=== PATIENT | female | born 1975 | race Caucasian/White ===

== ENCOUNTER → 2016-02-27 | Outpatient (CLI) | payer OTHER ==
--- NOTE | 2016-02-27 11:53 | DX ---
Lumbar Spine, AP and Lateral Upright Views, at 10:38 a.m. Clinical History: 40-year-old female with low back pain after slipping on ice today. ICD-10 Diagnostic Code: S20.229A. Comparison Study: Dictated report of pelvic sonography, dated April 25, 2005 from [facility], which identified large uterine fibroids. Findings: There are hypoplastic T12 ribs and 5 nonrib-bearing lumbar-type vertebral bodies. There is a mild lumbar levoscoliosis, measuring 8 degrees. The vertebral body heights and posterior alignments are maintained. There is mild straightening of the normal lumbar lordosis, which may reflect some un derlying muscle spasm. Interpediculate distances are appropriate. There is a T-shaped intrauterine de vice projected over the upper central pelvis. The sacral arcuate lines are well-contoured, and the SI joints are normal. There is some curvilinear calcification seen laterally over the left mid-lower sa keven on the frontal view, which could be related to a calcified leiomyoma. This could be further eval uated with pelvic sonography, as clinically directed. Impression: 1. Straightening of the normal lumbar lordosis and mild lumbar levoscoliosis, which may reflect some underlying muscle spasm. 2. There is no acute fracture. 3. Curvilinear calcification seen above an intrauterine device, probably related to calcified leiomyo rodriguez which have been described in the past; if there is further clinical concern, sonographic reevalu ation may be of benefit.
== END ==
LOC: BMCIMAGING 10:41
PROVIDERS: ATTEND Emergency Medicine
DX: M54.5 Low back pain (principal)

== ENCOUNTER → 2017-01-21 | Outpatient (CLI) | payer OTHER | LOC: FIMAGING 08:52 | PROVIDERS: ATTEND Midwife | DX: Z12.31 Encounter for screening mammogram for malignant neoplasm of breast (principal) | CPT/HCPCS: G0202 ==

== ENCOUNTER → 2017-10-13 | Outpatient (CLI) | payer OTHER | LOC: BMCIMAGING 15:44 | PROVIDERS: ATTEND Allergy & Immunology Allergy | DX: J98.4 Other disorders of lung (principal) ==

== ENCOUNTER → 2017-10-31 | Outpatient (CLI) | payer OTHER | LOC: FIMAGING 12:22 | PROVIDERS: ATTEND Allergy & Immunology Allergy | DX: J84.10 Pulmonary fibrosis, unspecified (principal) ==

== ENCOUNTER → 2018-02-10 | Outpatient (CLI) | payer OTHER | END | disposition home or self-care (01) | LOC: FIMAGING 11:39 | DX: Z12.31 Encounter for screening mammogram for malignant neoplasm of breast (principal); Z98.82 Breast implant status ==